=== PATIENT | male | born 1975 | race African-American/Black ===

== ENCOUNTER 2016-08-23 00:14 | Inpatient (IN) | payer OTHER, MEDICAID ==
[~2016-08-23] VITALS: Ht 177.8 cm; Wt 72.6 kg
[2016-08-23 03:50] LABS: BASOPHILS % 1.1 % (0.0-2.0); EOSINOPHILS % 0.2 % (0.0-5.0); HEMATOCRIT. 40.5 % (42.0-52.0); HEMOGLOBIN. 14.1 g/dL (14.0-18.0); MEAN CORPUSCULAR HEMOGLOBIN 30.2 pg (28.0-32.0); MEAN CORPUSCULAR VOLUME 87.1 fL (80.0-94.0); MEAN PLATELET VOLUME 8.6 fl (7.4-10.4); MONOCYTES % 4.9 % (2.0-8.0); NEUTROPHILS % 70.8 % (40.0-76.0); PLATELET 230 x1000/uL (130-400); RED BLOOD CELL COUNT 4.65 mill/uL (4.7-6.1); RED CELL DISTRIBUTION WIDTH 14.8 % (11.6-14.6)
[2016-08-23 03:53] LABS: CHLORIDE 103 mEq/L (98-107)
[2016-08-23 04:09] LABS: CARBON DIOXIDE 28 mEq/L (21-32); ETHANOL BLOOD < 10 mg/dL
[2016-08-23] MEDS ORDERED: CLONIDINE 0.1MG TABLET PO ONE ×2 (04:15→08:15)
[2016-08-23] MEDS ORDERED: LORAZEPAM 1MG TABLET PO ONE (04:15)
[2016-08-23 05:11] LABS: *AMPHETAMINES SCREEN URINE PRESUMTIVE POSITIVE (NEGATIVE); *BARBITURATES SCREEN URINE NEGATIVE (NEGATIVE); *BENZODIAZEPINES SCREEN URINE NEGATIVE (NEGATIVE); *COCAINE SCREEN URINE NEGATIVE (NEGATIVE); CANNABINOID URINE SCREEN PRESUMTIVE POSITIVE (NEGATIVE); METHADONE URINE SCREEN NEGATIVE (NEGATIVE); OPIATES URINE SCREEN NEGATIVE (NEGATIVE); PHENCYCLIDINE URINE SCREEN NEGATIVE (NEGATIVE)
[2016-08-23] MEDS ORDERED: LABETALOL 5MG/ML SYR 20 MG/4 ML SYRINGE IV ONE (10:45)
[2016-08-23] MEDS ORDERED: SODIUM CHLORIDE 0.9% 1,000 ML IV ONE (11:15)
[2016-08-23] MEDS ORDERED: ACETAMINOPHEN 325MG TABLET PO ONE (11:15)
[2016-08-23 11:52] LABS: PROTHROMBIN TIME 10.7 sec
[2016-08-23] MEDS ORDERED: HYDRALAZINE 20MG/ML VIAL IV ONE (14:00)
[2016-08-23] MEDS ORDERED: ONDANSETRON HCL 4MG/2ML VIAL IV PRN (20:30)
[2016-08-23] MEDS ORDERED: LORAZEPAM 0.5MG TABLET PO PRN (20:30)
[2016-08-23] MEDS ORDERED: HYDROCODONE/ACETAMINOPHEN 5/325MG TABLET PO PRN (20:30)
[2016-08-23] MEDS ORDERED: ACETAMINOPHEN 325MG TABLET PO PRN (20:30)
[2016-08-23] MEDS: AMLODIPINE 10MG TABLET PO SCH (21:00)
[2016-08-24] MEDS: CLONIDINE 0.1MG TABLET PO PRN ×2 (01:02→20:50)
[2016-08-24 06:35] LABS: EOSINOPHILS % 1.8 % (0.0-5.0); HEMATOCRIT. 38.5 % (42.0-52.0); HEMOGLOBIN. 13.1 g/dL (14.0-18.0); LYMPHOCYTES % 52.9 % (20.0-50.0); MEAN CORPUSCULAR HEMOGLOBIN 29.5 pg (28.0-32.0); MEAN CORPUSCULAR VOLUME 86.8 fL (80.0-94.0); MEAN PLATELET VOLUME 8.5 fl (7.4-10.4); MONOCYTES % 6.2 % (2.0-8.0); NEUTROPHILS % 38.1 % (40.0-76.0); PLATELET 227 x1000/uL (130-400); RED BLOOD CELL COUNT 4.43 mill/uL (4.7-6.1); RED CELL DISTRIBUTION WIDTH 15.2 % (11.6-14.6)
[2016-08-24 06:43] LABS: CARBON DIOXIDE 33 mEq/L (21-32); CHLORIDE 102 mEq/L (98-107)
[2016-08-24] MEDS: AMLODIPINE 10MG TABLET PO SCH (08:01)
[2016-08-25] MEDS: CLONIDINE 0.1MG TABLET PO PRN (08:57)
[2016-08-25] MEDS: AMLODIPINE 10MG TABLET PO SCH (08:59)
[2016-08-25] MEDS ORDERED: POTASSIUM CHLORIDE 20MEQ TABLET SR PO NR (11:00)
[2016-08-26] MEDS: AMLODIPINE 10MG TABLET PO SCH (08:45)
[2016-08-26] MEDS: LISINOPRIL 20MG TABLET PO SCH (20:03)
[2016-08-27] MEDS: LISINOPRIL 20MG TABLET PO SCH ×2 (09:21→20:06)
[2016-08-27] MEDS: AMLODIPINE 10MG TABLET PO SCH (09:22)
[2016-08-28] MEDS: AMLODIPINE 10MG TABLET PO SCH (09:45)
[2016-08-28] MEDS: LISINOPRIL 20MG TABLET PO SCH (09:45)
[2016-08-28] MEDS ORDERED: LOSARTAN POTASSIUM 100 MG TABLET PO SCH (11:15)
[2016-08-28 16:51] VITALS: BP 133/97
== END 2016-08-28 17:25 | DRG 199 ==
LOC: ER 00:14 → ENRESERV 16:00 → 5WST 16:48
PROVIDERS: ADMIT Hospitalist; ATTEND Hospitalist
DX: I16.0 Hypertensive urgency (principal); F29 Unspecified psychosis not due to a substance or known physiological condition; I10 Essential (primary) hypertension; F17.210 Nicotine dependence, cigarettes, uncomplicated; Z60.2 Problems related to living alone; Z59.0 Homelessness
CPT/HCPCS: 36415; 70450; 80048; 80053; 80305; 80307; 80329; 84484; 85025; 85610; 85730; 93005; 93970; 96361; 96374; 99285; G0482; J0360; J3490; J7030